=== PATIENT | male | born 2000 | race Caucasian/White ===

== ENCOUNTER 2023-10-02 13:04 | Emergency (ER) | payer BC, SELFPAY ==
[2023-10-02 13:09] VITALS: BP 146/79; PULSE 89; RESP 20; TEMP 36.7; O2SAT 98; BMI 35.4
--- NOTE | 2023-10-02 13:22 | ED.GENADUL1 ---
HPI - General Adult General Chief complaint: Nausea/Vomiting/Diarrhea Stated complaint: vomitting Time Seen by Provider: 10/02/23 13:09 Source: patient Mode of arrival: walk-in Limitations: no limitations History of Present Illness HPI narrative: patient is a 23-year-old male who presents to the emergency department for a three day history of headache, sore throat, swollen lymph nodes in the neck, vomiting, diarrhea. He has had no objective fevers. no medications taken prior to arrival. He states his sons were sick with runny noses last week but have gotten better. He states his mother told him there is a new Covid . He has no complaints of chest pain, shortness of breath. He has no difficulty speaking, swallowing or breathing. Related Data Previous Rx's Medication Instructions Recorded cefdinir 300 mg capsule 300 mg PO BID 10 days #20 caps 10/02/23 dexamethasone 4 mg tablet 4 mg PO BID 5 days #10 tabs 10/02/23 ondansetron 4 mg disintegrating 4 mg PO Q6H PRN nausea and 10/02/23 tablet vomiting #12 tabs Allergies Allergy/AdvReac Type Severity Reaction Status Date / Time Penicillins Allergy Severe Rash Verified 10/02/23 13:08 Review of Systems ROS Constitutional Reports: chills; Denies: fever Ears, nose, mouth, and throat Reports: throat pain and nasal congestion Cardiovascular Denies: chest pain Respiratory Reports: cough; Denies: shortness of breath Gastrointestinal Reports: nausea, vomiting and diarrhea Genitourinary Denies: painful urination Integumentary/Breast Denies: rash Neurological Reports: headache Hematologic/Lymphatic Denies: easy bruising Allergic/Immunologic Denies: hives Exam Narrative Exam Narrative: Gen.: Awake, alert, in no distress Head: Normocephalic, atraumatic ENT: Moist mucous membranes, pharyngeal erythema with airway widely open and patent, uvula midline. Tonsils are symmetric, no exudate noted. No trismus or drooling. Clear speech. Anterior cervical lymphadenopathy palpated, bilateral tympanic membranes clear Respiratory: No respiratory distress, lungs clear bilaterally Cardio: Regular rate and rhythm Gastrointestinal: Abdomen is soft, nondistended and nontender to palpation Extremities: Moves extremities equally Psych: Normal mood and affect Neuro: No focal neuro deficit Skin: Warm, dry, intact Constitutional Vital Signs, click to edit/add: Last Vital Signs Temp 98.1 F 10/02/23 13:09 Pulse 89 10/02/23 13:09 Resp 20 10/02/23 13:09 BP 146/79 H 10/02/23 13:09 Pulse Ox 98 10/02/23 13:09 O2 Del Method Room Air 10/02/23 13:09 Course Vital Signs Vital signs: Vital Signs Temperature 98.1 F 10/02/23 13:09 Pulse Rate 89 10/02/23 13:09 Respiratory Rate 20 10/02/23 13:09 Blood Pressure 146/79 H 10/02/23 13:09 Pulse Oximetry 98 10/02/23 13:09 Oxygen Delivery Method Room Air 10/02/23 13:09 Temperature 98.1 F 10/02/23 13:09 Pulse Rate 89 10/02/23 13:09 Respiratory Rate 20 10/02/23 13:09 Blood Pressure 146/79 H 10/02/23 13:09 Pulse Oximetry 98 10/02/23 13:09 Oxygen Delivery Method Room Air 10/02/23 13:09 Medical Decision Making MDM Narrative Medical decision making narrative: Covid test is negative, strep screen is positive. Patient treated in the Emergency Room with Zofran and Decadron. He is stable vital signs, no evidence of airway compromise or peritonsillar abscess at this time. Follow-up with PCP. He is ALLERGIC to penicillin so we will give Omnicef for home with BMX solution and Decadron. Follow-up with PCP and return to the Emergency Room if symptoms change or worsen. Medical Records Medical records reviewed: Yes I reviewed the patient's medical records Lab Data Lab results reviewed: Yes I reviewed the patient's lab results Labs: Lab Results 10/02/23 Range/Units 13:31 SARS-CoV-2 (PCR) Negative (NEGATIVE) Streptococcus Screen Positive A Discharge Plan Discharge Chief Complaint: Nausea/Vomiting/Diarrhea Clinical Impression: Acute streptococcal pharyngitis Patient Disposition: Home, Self-Care Time of Disposition Decision: 13:57 Condition: Good Prescriptions / Home Meds: New cefdinir 300 mg capsule 300 mg PO BID 10 Days Qty: 20 0RF dexamethasone 4 mg tablet 4 mg PO BID 5 Days Qty: 10 0RF ondansetron 4 mg tablet,disintegrating 4 mg PO Q6H PRN (Reason: nausea and vomiting) Qty: 12 0RF Instructions: Strep Throat (ED) Stand Alone Forms: Portal Instructions Referrals: Physician,Non-Staff, MD [Primary Care Provider] - 1 week
[2023-10-02] MEDS: DEXAMETHASONE SOD PHOS 10 MG/ML VIAL PO (13:28)
[2023-10-02] MEDS: ONDANSETRON 4 MG RAPDIS TABLET SL (13:28)
[2023-10-02 13:51] LABS: Internal Control Within Normal Limits; Strep A Antigen Screen Positive
[2023-10-02 13:53] LABS: SARS-CoV-2 Ag NEGATIVE (NEGATIVE)
[2023-10-02 14:04] VITALS: BP 135/70; PULSE 82; RESP 18; O2SAT 98
[2023-10-02 15:24] LABS: SARS-CoV-2 NAA NOT DETECTED (NOT DETECTE)
== END 2023-10-02 14:06 | disposition home or self-care (01) ==
PROVIDERS: Physician Assistant; Emergency Provider Emergency Medicine
DX: J02.0 Streptococcal pharyngitis (principal); Z20.822 Contact with and (suspected) exposure to COVID-19
CPT/HCPCS: 87635; 87811; 87880; 99283; J1100

== ENCOUNTER 2024-02-02 10:15 | Emergency (ER) | payer BC, SELFPAY ==
[2024-02-02 10:22] VITALS: BP 135/74; PULSE 104; RESP 15; TEMP 36.8; O2SAT 97; BMI 32.5
--- OUTSIDE RECORDS SUMMARY | 2024-02-02 10:27 | XMS_ITS | CCD ---
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 Role Phone Debbie Gaspar Primary Care Provider ISABELL LIU Admitting Unavailable ISABELL LIU Attending Unavailable DEBBIE DUBOIS Primary Care Unavailable ISABELL LIU Referring Unavailable ISABELL LIU Admitting Unavailable ISABELL LIU Attending Unavailable DEBBIE DUBOIS Primary Care Unavailable Allergies Allergy Classification Reported Allergen(s) Allergy Type Date of Onset Reaction(s) Facility (3 sources) Penicillins Propensity to adverse reactions to drug 04-29-2017 [facility] Medications Current Medications Medication Drug Class(es) Dates Sig (Normalized) Sig (Original) acetaminophen 500 mg oral tablet (1 source) Start: 01-18-2022 take 1 tablet by mouth four times daily as needed for pain acetaminophen (TYLENOL) 500 MG tablet Take 1 tablet by mouth 4 times daily as needed for Pain 30 tablet 1 01/18/2022 Active acetaminophen 325 mg / HYDROcodone bitartrate 5 mg oral tablet (1 source) Opioid Agonist Start: 2023 HYDROcodone-acetam inophen (NORCO) 5-325 MG per tablet 1 tablet acetaminophen 325 mg / oxyCODONE hydrochloride 5 mg oral tablet (1 source) Opioid Agonist Start: 2023 End: 02-18-2023 take 1 tablet by mouth every six hours as needed for pain, then take 4 tablets by mouth once daily as needed for pain oxyCODONE-acetamin ophen (PERCOCET) 5-325 MG per tablet Indications: Epidermal cyst Take 1 tablet by mouth every 6 hours as needed for Pain for up to 7 days. . Take lowest dose possible to manage pain Max Daily Amount: 4 tablets 28 tablet 0 2023 02/18/2023 Active cephalexin 500 mg oral capsule (1 source) Cephalosporin Antibacterial Start: 2023 cephALEXin (KEFLEX) 500 MG capsule 500 mgTake three times daily 21 capsule 0 2023 Active Start: 2023 cephALEXin (KE FLEX) 500 MG capsule 500 mgTake three times daily 21 capsule 0 2023 Active cetirizine hydrochloride 10 mg oral tablet (3 sources) Histamine-1 Receptor Antagonist Start: 12-11-2022 take 1 tablet by mouth once daily cetirizine (ZYRTEC) 10 MG tablet Indications: Seasonal allergic rhinitis, unspecified trigger TAKE 1 TABLET BY MOUTH EVERY DAY 90 tablet 3 12/11/2022 Active Start: 02-01-2022 End: 03-03-2022 take 1 tablet by mouth once daily cetirizine (ZYRTEC) 10 MG tablet Indications: Seasonal allergic rhinitis, unspecified trigger Take 1 tablet by mouth daily 30 tablet 0 02/01/2022 03/03/2022 Active 1 ml diphenhydrAMINE hydrochloride 50 mg/ml cartridge (1 source) Histamine-1 Receptor Antagonist Start: 2023 End: 02-12-2023 diphenhydrAMINE (BENADRYL) injection 12.5 mg escitalopram 20 mg oral tablet (1 source) Serotonin Reuptake Inhibitor Start: 10-19-2021 take 1 tablet by mouth once daily escitalopram (LEXAPRO) 20 MG tablet Indications: PTSD (post-traumatic stress disorder) , Depression, unspecified depression type , Anxiety TAKE 1 TABLET BY MOUTH EVERY DAY 90 tablet 3 10/19/2021 Active 1 ml fentaNYL 0.05 mg/ml injection (1 source) Opioid Agonist Start: 2023 fentaNYL (SUBLIMAZE) injection 25 mcg fluticasone propionate 0.05 mg/actuat metered dose nasal spray (3 sources) Corticosteroid Start: 12-11-2022 take 2 spray(s) nasal route once daily fluticasone (FLONASE) 50 MCG/ACT nasal spray Indications: Seasonal allergic rhinitis, unspecified trigger SPRAY 2 SPRAYS INTO EACH NOSTRIL EVERY DAY 3 each 3 12/11/2022 Active Start: 02-01-2022 take 2 spray(s) nasa l route once daily fluticasone (FLONASE) 50 MCG/ACT nasal spray Indications: Seasonal allergic rhinitis, unspecified trigger 2 sprays by Each Nostril route daily 16 g 0 02/01/2022 Active 1 ml HYDROmorphone hydrochloride 1 mg/ml cartridge (1 source) Opioid Agonist Start: 2023 HYDROmorphone (DILAUDID) injection 0.5 mg hydrOXYzine hydrochloride 25 mg oral tablet (1 source) Antihistamine Start: 11-22-2021 take 1 tablet by mouth once daily hydrOXYzine (ATARAX) 25 MG tablet Indications: Anxiety , PTSD (post-traumatic stress disorder) , Depression, unspecified depression type TAKE 1 TABLET BY MOUTH EVERY DAY AT NIGHT 90 tablet 0 11/22/2021 Active labetalol (NORMODYNE;TRANDATE ) injection 10 mg (1 source) Start: 2023 labetalol (NORMODYNE;TRANDATE) injection 10 mg 2 ml metoclopramide 5 mg/ml prefilled syringe (1 source) Dopamine-2 Receptor Antagonist Start: 2023 End: 02-12-2023 metoclopramide (REGLAN) injection 10 mg omeprazole 20 mg delayed release oral capsule (3 sources) Proton Pump Inhibitor Start: 12-11-2022 take 1 capsule by mouth once daily omeprazole (PRILOSEC) 20 MG delayed release capsule Indications: Gastroesophageal reflux disease without esophagitis , Nausea Take 1 capsule by mouth Daily 30 capsule 5 12/11/2022 Active Start: 10-03-2021 take 1 capsule by mo [facility] once daily before breakfast omeprazole (PRILOSEC) 20 MG delayed release capsule Indications: Gastroesophageal reflux disease without esophagitis , Nausea TAKE 1 CAPSULE BY MOUTH EVERY DAY IN THE MORNING BEFORE BREAKFAST 30 capsule 5 10/03/2021 Active ondansetron 4 mg oral tablet (4 sources) Serotonin-3 Receptor Antagonist Start: 2023 ondansetron (ZOFRAN) 4 MG tablet Take every six hours as needed 20 tablet 0 2023 Active Start: 2023 End: 2023 ondansetron (ZOFRAN) injecti on 4 mg Start: 09-10-2021 take 1 tablet by stephanie three times daily as needed for nausea ondansetron (ZOFRAN-ODT) 4 MG disintegrating tablet Indications: Gastroesophageal reflux disease without esophagitis , Nausea Take 1 tablet by mouth 3 times daily as needed for Nausea or Vomiting 21 tablet 0 09/10/2021 Active End: 2023 take 1 tablet by mouth every eight hours as needed for nausea ondansetron (ZOFRAN) 4 MG tablet Take 4 mg by mouth every 8 hours as needed for Nausea or Vomiting 0 2023 Discontinued (Stop Taking at Discharge) prazosin 1 mg oral capsule (1 source) alpha-Adrenergic Nick Start: 11-22-2021 take 1 capsule by mouth once daily prazosin (MINIPRESS) 1 MG capsule Indications: Anxiety , PTSD (post-traumatic stress disorder) , Depression, unspecified depression type TAKE 1 CAPSULE BY MOUTH EVERY DAY AT NIGHT 90 capsule 0 11/22/2021 Active 72 hr scopolamine 0.0139 mg/hr transdermal system (1 source) Anticholinergic Start: 2023 scopolamine (TRANSDERM-SCOP) transdermal patch 1 patch 5 ml sodium chloride 9 mg/ml injection (3 sources) Start: 2023 0.9 % sodium chloride infusion Start: 2023 sodium chlorid e flush 0.9 % injection 5-40 mL sulfamethoxazole 800 mg / trimethoprim 160 mg oral tablet (1 source) Dihydrofolate Reductase Inhibitor Antibacterial, Sulfonamide Antimicrobial take 1 tablet by mouth twice daily sulfamethoxazole-trimethoprim (BACTRIM DS;SEPTRA DS) 800-160 MG per tablet Take 1 tablet by mouth 2 times daily 0 Active Completed/Discontinued Medications Medication Drug Class(es) Dates Sig (Normalized) Sig (Original) calcium chloride 0.0014 meq/ml / potassium chloride 0.004 meq/ml / sodium chloride 0.103 meq/ml / sodium lactate 0.028 meq/ml injectable solution (1 source) Start: 2023 End: 2023 lactated ringers IV soln infusion 10 ml lidocaine hydrochloride 10 mg/ml injection (1 source) Antiarrhythmic, Amide Local Anesthetic Start: 2023 End: 2023 lidocaine PF 1 % injection 1 mL Problems Problem Classification Problem Date Documented Date Episodic/Chronic Anxiety disorders (6 sources) Posttraumatic stress disorder; Translations: [Post-traumatic stress disorder, unspecified] Onset: 07-17-2021 07-17-2021 Chronic Mood disorders (3 sources) Depressive disorder; Translations: [Depression] Onset: 07-17-2021 07-17-2021 Chronic Other skin disorders (3 sources) Finding of head and neck region; Translations: [Localized swelling, mass and lump, head] Onset: 02-10-2023 Episodic Other skin disorders (1 source) Epidermoid cyst of skin; Translations: [Epidermal cyst] Episodic Other skin disorders (1 source) Epidermal cyst; Translations: [Epidermal cyst] Onset: 2023 Episodic Other skin disorders (1 source) Localized swelling, mass and lump, head; Translations: [Localized swelling, mass and lump, head] Onset: 2023 Episodic Results Test Name Value Interpretation Reference Range [facility] Surgical Pathologyon 023 Surgical Pathology (NOTE) -- Diagnosis -- Skin, left lower head , excisional biopsy: Ruptured epidermal cyst with abscess formation. Lissa Damico. Electronically Signed Out 02/12/2023 Clinical Information Pre-Op Diagnosis: LOCALIZED SWELLING, MASS AND LUMP, HEAD Operative Findings: LEFT LOWER HEAD CYST Operation Performed: HEAD EXCISION LUMP [facility]CC[facility] mj Source of Specimen A: LEFT LOWER HEAD CYST Gross Description CHAVO CUMMINGS LEFT LOWER HEAD CYST 5.0 x 2.5 x 1.8 cm distorted ochoa skin ellipse. Sectioning reveals a 2.8 cm intact unilocular cyst that contains friable yellow material. Vision Specialist section 1cs, additional sections 2cs. tm Microscopic Description 3 NENA reviewed. Microscopic examination performed. SURGICAL PATHOLOGY CONSULTATION Patient Name: CHAVO CUMMINGS [facility] Rec: [id number] Path Number: [id number] [facility]akesAll [facility] ANATOMIC PATHOLOGY [address] [place] [id number] [facility] Comment on above: Performed By: #### P PPVS #### [employer] [address] [place] [id number] Tooling Engineering Tech: John Quinonez MD CBC with Auto Differentialon 02-10-2023 Absolute Eos # 0.[address] [facility] Absolute Lymph # 1.90 [facility] Absolute [place] # 0.90 [facility] Basophils (Bld) [#/Vol] 0.10 10*3/uL [facility] Basophils/100 WBC (Bld) 1 % 0 - 2 % [facility] Eosinophils/100 WBC (Bld) 5 % High 0 - 4 % [facility] Hematocrit (Bld) [Volume fraction] 43.1 % 41 - 53 % [facility] Hemoglobin (Bld) [Mass/Vol] 14.2 g/dL 13.5 - 17.5 g/dL [facility] Interpretation and review of laboratory results Abnormal [facility] Lymphocytes/100 WBC (Bld) 22 % Low 24 - 44 % [facility] MCH (RBC) [Entitic mass] 29.3 pg 26 - 34 pg [facility] MCHC (RBC) [Mass/Vol] 32.9 g/dL 31 - 37 g/dL [facility] MCV (RBC) [Entitic vol] 89.1 fL 80 - 100 fL [facility] Monocytes/100 WBC (Bld) 10 % High 1 - 7 % [facility] Platelet distribution width (Bld) [Ratio] 13.4 % 11.5 - 14.9 % [facility] Platelet mean volume (Bld) [Entitic vol] 8.9 fL 6.0 - 12.0 fL [facility] Platelets (Bld) [#/Vol] 306 10*3/uL [facility] RBC (Bld) [#/Vol] 4.84 10*6/uL 4.5 - 5.9 m/uL [facility] Segmented neutrophils/100 WBC (Bld) 62 % 36 - 66 % [facility] Segs Absolute 5.40 [facility] WBC (Bld) [#/Vol] 8.7 10*3/uL [facility] CBC with Diffon 02-10-2023 Abs. Basophil 0.10 k/uL Normal 0.0-0.2 [facility] Comment on above: Performed By: #### C DP #### [facility] [address] [place] [address] Tooling Engineering Tech: Jered Rogers DO Abs.Neutrophil (Seg) 5.40 k/uL Normal 1.3-9.1 [facility] Comment on above: Performed By: #### C DP #### [facility] [address] [place] [address] Tooling Engineering Tech: Jered Rogers DO Basophils/100 WBC (Bld) 1 % Normal 0-2 [facility] Comment on above: Performed By: #### C DP #### [facility] [place] [address] Tooling Engineering Tech: Jered Rogers DO Eosinophils (Bld) [#/Vol] 0.40 10*3/uL Normal 0.0-0.4 [facility] Comment on above: Performed By: #### C DP #### [facility] [address] [place] [address] Tooling Engineering Tech: Jered Rogers DO Eosinophils/100 WBC (Bld) 5 % High 0-4 [facility] Comment on above: Performed By: #### C DP #### [facility] [place] [address] Tooling Engineering Tech: Jered Rogers DO Erythrocyte distribution width (RBC) [Ratio] 13.4 % Normal 11.5-14.9 [facility] Comment on above: Performed By: #### C DP #### [facility] [place] [address] Tooling Engineering Tech: Jered Rogers DO Hematocrit (Bld) [Volume fraction] 43.1 % Normal 41-53 [facility] Comment on above: Performed By: #### C DP #### [facility] [place] [address] Tooling Engineering Tech: Jered Rogers DO Hemoglobin (Bld) [Mass/Vol] 14.2 g/dL Normal 13.5-17.5 [facility] Comment on above: Performed By: #### C DP #### [facility] [address] [place] [address] Tooling Engineering Tech: Jered Rogers DO Lymphocytes (Bld) [#/Vol] 1.90 10*3/uL Normal 1.0-4.8 [facility] Comment on above: Performed By: #### C DP #### [facility] [place] [address] Tooling Engineering Tech: Jered Rogers DO Lymphocytes/100 WBC (Bld) 22 % Low 24-44 [facility] Comment on above: Performed By: #### C DP #### [facility] [place] [address] Tooling Engineering Tech: Jered Rogers DO MCH (RBC) [Entitic mass] 29.3 pg Normal 26-34 [facility] Comment on above: Performed By: #### C DP #### [facility] [place] [address] Tooling Engineering Tech: Jered Rogers DO MCHC (RBC) [Mass/Vol] 32.9 g/dL Normal 31-37 [facility] Comment on above: Performed By: #### C DP #### [facility] [place] [address] Tooling Engineering Tech: Jered Rogers DO MCV (RBC) [Entitic vol] 89.1 fL Normal 80-100 [facility] Comment on above: Performed By: #### C DP #### [facility] [place] [address] Tooling Engineering Tech: Jered Rogers DO Monocytes (Bld) [#/Vol] 0.90 10*3/uL Normal 0.1-1.3 [facility] Comment on above: Performed By: #### C DP #### [facility] [address] [place] [address] Tooling Engineering Tech: Jered Rogers DO Monocytes/100 WBC (Bld) 10 % High 1-7 [facility] Comment on above: Performed By: #### C DP #### [facility] [address] [place] [address] Tooling Engineering Tech: Jered Rogers DO Neutrophil (Seg) 62 % Normal 36-66 [facility] Comment on above: Performed By: #### C DP #### [facility] [place] [address] Tooling Engineering Tech: Jered Rogers DO Platelet mean volume (Bld) [Entitic vol] 8.9 fL Normal 6.0-12.0 [facility] Comment on above: Performed By: #### C DP #### [facility] [place] [address] Tooling Engineering Tech: Jered Rogers DO Platelets (Bld) [#/Vol] 306 10*3/uL Normal 150-450 [facility] Comment on above: Performed By: #### C DP #### [facility] [place] [address] Tooling Engineering Tech: Jered Rogers DO RBC (Bld) [#/Vol] 4.84 10*6/uL Normal 4.5-5.9 [facility] Comment on above: Performed By: #### C DP #### [facility] [place] [address] Tooling Engineering Tech: Jered Rogers DO WBC (Bld) [#/Vol] 8.7 10*3/uL Normal 3.5-11.0 [facility] Comment on above: Performed By: #### C DP #### [facility] [address] [place] [address] Tooling Engineering Tech: Jered Rogers DO Vital Signs Date Time Vital Sign Value Performing Clinician Faci lity 2023 10:19-0400 Body temperature 97.3 [degF] Isabell Liu MD Work Phone: [facility] 2023 10:19-0400 Diastolic blood pressure 46 mm[Hg] Isabell Liu MD Work Phone: [facility] 2023 10:19-0400 Heart rate 79 /min Isabell Liu MD Work Phone: [facility] 2023 10:19-0400 Respiratory rate 16 /min Isabell Liu MD Work Phone: [facility] 2023 10:19-0400 SaO2% (BldA) [Mass fraction] 100 % Isabell Liu MD Work Phone: [facility] 2023 10:19-0400 Systolic blood pressure 124 mm[Hg] [facility] [employer] 2023 06:49-0400 Body height 175.3 cm [facility]abell Liu MD [facility] 2023 06:49-0400 Body mass index (BMI) [Ratio] 35.44 kg/m2 Isabell Liu MD [facility] [employer] 2023 06:49-0400 Body weight 108.86 kg Isabell Liu MD [facility] [employer] 02-10-2023 07:29-0400 Body height 175.3 cm Isabell Liu MD Work Phone: [facility] [employer] 02-10-2023 07:29-0400 Body mass index (BMI) [Ratio] 35.44 kg/m2 Isabell Liu MD Work Phone: [facility] [employer] 02-10-2023 07:29-0400 Body temperature 98.2 [degF] [facility]abell Liu MD [facility] [employer] 02-10-2023 07:29-0400 Body weight 108.86 kg Isabell Liu MD Work Phone: [facility] [employer] [facility] 02-10-2023 07:29-0400 Diastolic blood pressure 80 mm[Hg] Isabell Liu MD Work Phone: [facility] [employer] 02-10-2023 07:29-0400 Heart rate 90 /min Isabell Liu MD [facility] 02-10-2023 07:29-0400 Respiratory rate 18 /min Isabell Liu MD [facility] 02-10-2023 07:29-0400 SaO2% (BldA) [Mass fraction] 99 % Isabell Liu MD Work Phone: [facility] [employer] [facility] 02-10-2023 07:29-0400 Systolic blood pressure 132 mm[Hg] Isabell Liu MD Work Phone: [facility] Encounters Encounter Date Encounter Type Care Provider Facility Start: 2023 End: 2023 ambulatory ISABELL Liang [facility] Start: 2023 End: 2023 Subsequent hospital visit by physician Isabell Liu MD Work Phone: [facility] Comment on above: Epidermal cyst (Prim thee Dx); Localized swelling, mass and lump, head Start: 02-10-2023 End: 02-15-2023 ambulatory ISABELL Garth [facility] Start: 02-10-2023 End: 03-17-2023 Subsequent hospital visit by physician Isabell Lui MD Work Phone: [facility] Pre-Admit Testing Start: 02-18-2022 End: 02-18-2022 Subsequent hospital visit by physician [facility] Comment on above: Canceled (Patient) Procedures Date Procedure Procedure Detail Performing Clinician Start: 02-10-2023 Blood count complete auto&auto difrntl wbc Isabell Liu MD Work Phone: Plan of Treatment Date Care Activity Detail Author Start: 12-11-2023 Depression Monitoring Depression [facility] Start: 2023 End: 2023 Exc b9 lesion mrgn xcp sk tg s/n/h/f/g 0.5 cm/< HEAD LESION EXCISION Localized swelling, mass and lump, head 2023 8:36 AM EDT [facility] Start: 07-17-2022 Depression Monitoring Depression [facility] Start: 07-01-2022 Influenza vaccination Flu vaccine (# 1) [facility] Start: 08-01-2021 Influenza vaccination Flu vaccine (# 1) [facility] Start: 2017 DTaP/Tdap/Td vaccine (1 - Tdap) DTaP/Tdap/Td vaccine (1 - Tdap) [facility] Start: 02-12-2016 Hepatitis C screening Hepatitis C sc reen [facility] Start: 2013 HIV screening HIV screen [facility] Start: 2009 HPV vaccine (1 - Mal e 2-dose series) HPV vaccine (1 - Male 2-dose series) [facility] Start: 02-12-2004 Pneumococcal 0-64 ye ars Vaccine (1 of 2 - PPSV23) Pneumococcal 0-64 years Vaccine (1 of 2 - PPSV23) [facility] Start: 2003 COVID-19 Vaccine (1) COVID-19 Vaccin e (1) [facility] Start: 1999 Varicella vaccine (1 of 2 - 2-dose childhood series) Varicella vaccine (1 of 2 - 2-dose childhood series) [facility] Start: 1998 COVID-19 Vaccine (#1) COVID-19 Vacci ne (#1) [facility] Start: 1998 Hepatitis C screening Hepatitis C [facility] [employer] End: 2023 INITIATE PACU OXYGEN THERAPY PROTOCOL Initiate PACU Oxygen Therapy Protocol Respiratory Care Routine Continuous until discontinued starting 2023 [employer] Phone: Comment on above: Continuous until dis continued starting 2023 Surgical Pathology Surgical Path ology Lab Routine Localized swelling, mass and lump, head Release Upon Ordering for 1 Occurrences starting 2023 [employer] Phone: Comment on above: Release Upon Orderin g for 1 Occurrences starting 2023 End: 2023 SURGICAL PATHOLOGY REPORT SURGICAL PATHOLOGY REPORT Lab Routine Once for 1 Occurrences starting 2023 until 2023 [employer] Phone: Comment on above: Once for 1 Occurrenc es starting 2023 until 2023 Payers Date Payer Category Payer Unknown [id number] 2021 Unknown [id number] 1998 Unknown [id number] 1998 Unknown [id number] Social History Date Type Detail Facility Start: 06-16-2021 Tobacco smoking stat [facility] Smokes tobacco daily [employer] Phone: Start: 06-16-2021 End: 2022 History of tobacco use Cigarette Smoker [employer] Phone: Start: 07-17-2021 End: 02-10-2023 Cigarettes smoked current (pack per day) - Reported 0.5 [employer] Phone: Start: 07-17-2021 End: 02-10-2023 Tobacco use and exposure Smokeless tobacco non-user [employer] Phone: Start: 01-18-2022 Alcohol intake Ex-drinker (finding) [employer] Phone: Start: 07-17-2021 End: 01-21-2023 History SDOH Financial 5 [employer] Phone: Start: 07-17-2021 End: 01-21-2023 History SDOH Food Worry 1 [employer] Phone: Start: 2000 Sex Assigned At Not on file [employer] Phone: Start: 02-10-2023 Tobacco smoking stat [facility] Ex-smoker [employer] Phone: Start: 06-16-2021 End: 2022 History of tobacco use Current smoker [employer] Phone: Start: 2023 Alcohol intake Current drinke r of alcohol (finding) [employer] Phone: Start: 01-21-2023 History SDOH Transpo rt Non-Med 2 [employer] Phone: Start: 02-10-2023 Alcohol Comment social/weekends [employer] Phone: Start: 01-31-2023 End: 02-10-2023 Exposure to SARS-CoV-2 (event) Not sure [employer] Phone: Hospital Discharge instructions 2023 Discharge Instructions Note Date & Type Note Facility 2023 Hospital Discharg e instructions Genesis James RN - 2023 9:[address] Liu Post-Op Orders for Outpatient 1.) Diet: [x] As tolerated [] Special 2.) Activity: [] No lifting more than five to ten pounds weeks [x] May Shower tomorrow [x] No driving until off pain medications 3.) Dressing: [x] Remove top dressing in 48 hours [x] Leave steri strips on [x] Remove and change dressing sooner if soaked 4.) Medication: [x] Take medication as prescribed [] Resume blood thinners in days [x] Resume home medications per AVS Summary 5.) Office visit: Follow up with Dr. Liu. Call to schedule an appointment if one has not been made. 6.) Call [phone] if you have any questions or concerns. [facility] INSTRUCTIONS FOR GENERAL ANESTHESIA In order to continue your care at home, please follow the instructions below. Anesthesia - Do not drink any alcoholic beverages or make any legal or important decisions for 24 hours. If your surgery was on an extremity or abdomen, do not drive or operate any machinery until your surgeon approves, otherwise do not drive or operate any machinery for 24 hours or as restricted by your surgeon. Pain Medications - Please do not drive, operate machinery, or drink alcoholic beverages while taking any prescribed pain medication. Diet - Start out eating lightly (broth, soup, crackers, toast, etc.) advancing as tolerated to your usual diet. Try to avoid spicy and greasy/fatty foods for 24 hours. Drink plenty of fluids after surgery, unless you are on a fluid restriction. Avoid milk/milk product for several hours. Call your surgeon for the following: You have pain that does not get better after you take pain medicine. For an oral temperature (by mouth) is 101 degrees or higher, chills, or excessive sweating. You have increasing and progressive bleeding or drainage from surgery site. Signs of an infection: increased swelling, redness, warmth, or hardness around surgery area or yellow or green drainage. Persistent nausea or vomiting and can t keep fluids down. If you are unable to urinate within 8 hours of surgery. Redness or swelling at IV site. For any questions or concerns you may have. Remove Scopalamine patch fro behind Left ear on 02/13/23 documented in this encounter [facility] [employer] Work Phone: Hospital Discharge instructions 02-10-2023 Discharge Instructions Note Date & Type Note Facility 02-10-2023 Hospital Discharg e instructions Carrie Corona RN - 02/10/2023 6:51 AM EDT Pre-op Instructions For Out-Patient Surgery Medication Instructions: Please stop herbs and any supplements now (includes vitamins and minerals). Please contact your surgeon and prescribing physician for pre-op instructions for any blood thinners. If you have inhalers/aerosol treatments at home, please use them the morning of your surgery and bring the inhalers with you to the hospital. Please take the following medications the morning of your surgery with a sip of water: Omeprazole Surgery Instructions: After midnight before surgery: Do not eat or drink anything, including water, mints, gum, and hard candy. You may brush your teeth without swallowing. No smoking, chewing tobacco, or street drugs. Please shower or bathe before surgery. If you were given Surgical Scrub Chlorhexidine Gluconate Liquid (CHG), please shower the night before and the morning of your surgery following the detailed instructions you received during your pre-admission visit. Please do not wear any cologne, lotion, powder, deodorant, jewelry, piercings, perfume, makeup, nail malaysian, hair accessories, or hair spray on the day of surgery. Wear loose comfortable clothing. Leave your valuables at home. Bring a storage case for any glasses/contacts. An adult who is responsible for you MUST drive you home and should be with you for the first 24 hours after surgery. If having out-patient knee and foot surgeries, please arrange for planned crutches, walker, or wheelchair before arriving to the hospital. The Day of Surgery: Arrive at [facility] Surgery Entrance at the time directed by your surgeon and check in at the desk. If you have a living will or healthcare power of ship rigger,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
[2024-02-02 10:45] LABS: Internal Control Within Normal Limits; Strep A Antigen Screen Positive
--- NOTE | 2024-02-02 10:57 | ED_ITS ---
HPI - General Adult General Stated complaint: SORE THROAT/PUKING Time Seen by Provider: 02/02/24 10:56 Source: patient Mode of arrival: walk-in Limitations: no limitations History of Present Illness HPI narrative: This patient is here for evaluation of a sore throat. He said several family members had symptoms couple weeks ago but no other contact that he is aware of. He has aches and pains and chills and a very sore throat. He still has his tonsils. He is not on any antibiotics at this time. He says his breath smells like animals Related Data Allergies Allergy/AdvReac Type Severity Reaction Status Date / Time Penicillins Allergy Severe Rash Verified 10/02/23 13:08 [facility] Social History Smoking status: Current every day smoker Exam Narrative Exam Narrative: Patient is awake alert is not a toxic in appearance. His rapid strep was done after triage by nursing. The strep test is positive His airway is widely intact he has no stridor no drooling no posturing. On examination oral cavity does have exudate and erythema. The uvula is not swollen. The lips of the tongue and the floor the mouth are normal. He does not display any respiratory distress wheezing or coughing. Constitutional Vital Signs, click to edit/add: Last Vital Signs Temp 98.2 F 02/02/24 10:22 Pulse 104 H 02/02/24 10:22 Resp 15 02/02/24 10:22 BP 135/74 02/02/24 10:22 Pulse Ox 97 02/02/24 10:22 O2 Del Method Room Air 02/02/24 10:22 Course Vital Signs Vital signs: Vital Signs Temperature 98.2 F 02/02/24 10:22 Pulse Rate 104 H 02/02/24 10:22 Respiratory Rate 15 02/02/24 10:22 Blood Pressure 135/74 02/02/24 10:22 Pulse Oximetry 97 02/02/24 10:22 Oxygen Delivery Method Room Air 02/02/24 10:22 Temperature 98.2 F 02/02/24 10:22 Pulse Rate 104 H 02/02/24 10:22 Respiratory Rate 15 02/02/24 10:22 Blood Pressure 135/74 02/02/24 10:22 Pulse Oximetry 97 02/02/24 10:22 Oxygen Delivery Method Room Air 02/02/24 10:22 Medical Decision Making Lab Data Labs: Lab Results 02/02/24 Range/Units 10:22 Streptococcus Screen Positive A Discharge Plan Discharge Chief Complaint: Upper Respiratory Infection Patient Disposition: Home, Self-Care Time of Disposition Decision: 11:24 Condition: Good Discharge Date/Time: 02/02/24 11:21
== END 2024-02-02 11:21 | disposition home or self-care (01) ==
LOC: ER 10:26
PROVIDERS: Emergency Provider Emergency Medicine Emergency Medical Services
DX: J02.0 Streptococcal pharyngitis (principal); F17.210 Nicotine dependence, cigarettes, uncomplicated
CPT/HCPCS: 87880; 99283

== ENCOUNTER 2024-05-02 19:44 | Emergency (ER) | payer SELFPAY ==
[2024-05-02 19:51] VITALS: BP 161/79; PULSE 96; TEMP 37.1; O2SAT 99; BMI 32.6
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
[2024-05-02 20:25] LABS: Internal Control Within Normal Limits; Strep A Antigen Screen Negative
--- NOTE | 2024-05-02 20:25 | ED.GENADUL1 ---
HPI HPI - General Adult General Chief complaint: Upper Respiratory Infection Stated complaint: SORE THROAT Time Seen by Provider: 05/02/24 20:08 Source: patient Mode of arrival: walk-in History of Present Illness HPI narrative: 24-year-old male presents for sore throat of 2 days duration. It hurts more when he swallows. No known ill contacts. No fever or cough. The pain is moderate. Related Data Allergies Allergy/AdvReac Type Severity Reaction Status Date / Time Penicillins Allergy Severe Rash Verified 10/02/23 13:08 Opioid HPI Opioid Management Most Recent Opioid Data: No Data to Display Review of Systems ROS Narrative A ten point review of systems is negative except as noted above. PFSH PFSH Social History Smoking status: Current every day smoker Exam Narrative Exam Narrative: Nurses note and vital signs reviewed and patient is not hypoxic. General: The patient appears well and in no apparent distress. Patient is resting comfortably on cart. Skin: Warm, dry, no pallor noted. There is no rash noted. Head: Normocephalic, atraumatic Eye: Normal conjunctiva, no drainage Ears, Nose, Mouth, and Throat: oral mucosa is moist. Nares patent. He has pharyngeal erythema. No peritonsillar swelling or uvular deviation. Uvula is mildly swollen. He is handling his oral secretions well. Cardiovascular: Regular Rate and Rhythm Respiratory: Patient is in no distress, no accessory muscle use, lungs are clear to auscultation, no wheezing, rales or rhonchi Back: non-tender GI: Soft and nontender Musculoskeletal: No joint swelling Neurological: A&O, normal speech Psychiatric: Cooperative Constitutional Vital Signs, click to edit/add: Last Vital Signs Temp 98.8 F 05/02/24 19:51 Pulse 96 H 05/02/24 19:51 Resp 18 05/02/24 19:51 BP 161/79 H 05/02/24 19:51 Pulse Ox 99 05/02/24 19:51 O2 Del Method Room Air 05/02/24 19:51 Course Vital Signs Vital signs: Vital Signs Temperature 98.8 F 05/02/24 19:51 Pulse Rate 96 H 05/02/24 19:51 Respiratory Rate 18 05/02/24 19:51 Blood Pressure 161/79 H 05/02/24 19:51 Pulse Oximetry 99 05/02/24 19:51 Oxygen Delivery Method Room Air 05/02/24 19:51 Temperature 98.8 F 05/02/24 19:51 Pulse Rate 96 H 05/02/24 19:51 Respiratory Rate 18 05/02/24 19:51 Blood Pressure 161/79 H 05/02/24 19:51 Pulse Oximetry 99 05/02/24 19:51 Oxygen Delivery Method Room Air 05/02/24 19:51 Medical Decision Making MDM Narrative Medical decision making narrative: Strep test is negative. He was given IM Decadron. At this point there is no indication for an antibiotic and he likely has viral pharyngitis. Treatment diagnosis and follow-up were discussed with the patient. Differential Diagnosis Differential Diagnosis: Viral pharyngitis, strep throat Lab Data Lab results reviewed: Yes I reviewed the patient's lab results Labs: Lab Results 05/02/24 Range/Units 19:56 Streptococcus Screen Negative Discharge Plan Discharge Stand Alone Forms: Portal Instructions Chief Complaint: Upper Respiratory Infection Clinical Impression: Viral pharyngitis Patient Disposition: Home, Self-Care Time of Disposition Decision: 20:31 Condition: Good Mode of Transportation: Private Vehicle Print Language: Icelandic Instructions: Pharyngitis (ED) Referrals: Physician,Non-Staff, MD [Primary Care Provider] - 1 week
[2024-05-02] MEDS: DEXAMETHASONE SOD PHOS 10 MG/ML VIAL IM (20:38)
[2024-05-02 20:44] VITALS: BP 136/89; PULSE 73; O2SAT 98
== END 2024-05-02 20:44 | disposition home or self-care (01) ==
PROVIDERS: Emergency Provider Emergency Medicine
DX: J02.9 Acute pharyngitis, unspecified (principal)
CPT/HCPCS: 87070; 87880; 96372; 99284; J1100

== ENCOUNTER 2024-07-15 10:09 | Emergency (ER) | payer SELFPAY ==
[2024-07-15 10:13] VITALS: BP 130/72; PULSE 88; TEMP 36.6; O2SAT 99; BMI 32.6
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
--- NOTE | 2024-07-15 10:35 | ED_ITS ---
HPI HPI - General Adult General Chief complaint: Skin/Abscess/Foreign Body Stated complaint: LUMP ON CHEST, REDNESS Time Seen by Provider: 07/15/24 10:16 Source: patient Mode of arrival: walk-in History of Present Illness HPI narrative: The patient is coming to the ER with a sternal swelling that he noted over the last 5 to 6 days, there was no itching there was no lesion there but he mentioned over the last 3 years almost he had at least 3 times as a problem in the same spot Initially the first time he had a drainage of that area and then the second time he did not do anything for it Today after 5 to 6 days the patient noted that there is a swelling in the area and that why he is coming for evaluation, there was no trauma and there was only pain whenever he is using his arm No fever no chills no nausea no vomiting Related Data Previous Rx's ?Medication ?Instructions ?Recorded ibuprofen 600 mg tablet 600 mg PO TID PRN pain #20 tabs 07/15/24 sulfamethoxazole 800 1 tab PO Q12H #14 tabs 07/15/24 mg-trimethoprim 160 mg tablet (Bactrim DS) Allergies Allergy/AdvReac Type Severity Reaction Status Date / Time Penicillins Allergy Severe Rash Verified 10/02/23 13:08 Opioid HPI Opioid Management Most Recent Opioid Data: No Data to Display Review of Systems ROS Status of ROS 10 or more systems reviewed and unremark able except as noted in history and below PFSH PFS Social History Smoking status: Current every day smoker Exam Narrative Exam Narrative: Nurses notes and vital signs reviewed and patient is not hypoxic. Chest wall: At the mid of the sternal area the patient have a an area of almost 2 x 1 cm redness no fluctuation There is no opening of any drainage but it is covered with hair General: Well-appearing and in no apparent distress. Skin: Warm, dry, no pallor noted. No rash. Head: Normocephalic, atraumatic. Neck: Supple, non-tender. Eye: Pupils are equal, round and EOMI. No scleral icterus. Ears, Nose, Mouth, and Throat: TM are clear, no nasal mucosal hypertrophy. Oral mucosa is moist, no posterior oropharynx erythema, uvula is mid-line Cardiovascular: Regular Rate and Rhythm without murmur, gallop or rub. Respiratory: No accessory muscle use or respiratory distress. Lungs are clear to auscultation, no wheezing, rales or rhonchi Back: No midline thoracic or lumbar vertebral tenderness. No CVA tenderness Musculoskeletal: normal ROM, no calf or popliteal tenderness, no lower extre mity edema/swelling GI: Abdomen is soft, non-distended. Normal bowel sounds. No masses appreciated. No tenderness to palpation. No rebound, guarding, or rigidity noted. Neurological: A&O x4. No cranial nerve dysfunction observed. No truncal ataxia. Moves all extremities. Sensation intact. Psychiatric: Cooperative and interactive. Normal mood and affect. Constitutional Vital Signs, click to edit/add: Last Vital Signs Temp 97.9 F 07/15/24 10:13 Pulse 88 07/15/24 10:13 Resp 16 07/15/24 10:13 BP 130/72 07/15/24 10:13 Pulse Ox 99 07/15/24 10:13 O2 Del Method Room Air 07/15/24 10:13 Course Vital Signs Vital signs: Vital Signs Temperature 97.9 F 07/15/24 10:13 Pulse Rate 88 07/15/24 10:13 Respiratory Rate 16 07/15/24 10:13 Blood Pressure 130/72 07/15/24 10:13 Pulse Oximetry 99 07/15/24 10:13 Oxygen Delivery Method Room Air 07/15/24 10:13 Temperature 97.9 F 07/15/24 10:13 Pulse Rate 88 07/15/24 10:13 Respiratory Rate 16 07/15/24 10:13 Blood Pressure 130/72 07/15/24 10:13 Pulse Oximetry 99 07/15/24 10:13 Oxygen Delivery Method Room Air 07/15/24 10:13 Medical Decision Making [facility] Narrative Medical decision making narrative: Right now the patient presentation shows possible cellulitis although there is no fluctuation but this could be an ongoing process of an abscess forming I did explain to the patient that for the fact that he is having multiple lesion in the same area that could be further workup to follow-up with his primary care and he was referred to her primary care The patient was started on Bactrim as he had allergy to penicillin He also covered with ibuprofen for pain Patient instructed about monitoring his symptoms in case of increasing pain fever or any progression he is to come back to the ER The patient is to follow up with primary care physician in next 2-3 days or to return to the emergency department should any of the signs or symptoms worsen or new symptoms develop. The patient agrees with the following Diagnosis and T reatment plan and the patient will be discharged home. Discharge Plan Discharge Stand Alone Forms: Portal Instructions Chief Complaint: Skin/Abscess/Foreign Body Clinical Impression: Cellulitis Qualifiers: Site of cellulitis: unspecified site Qualified Code(s): L03.90 - Cellulitis, unspecified Patient Disposition: Home, Self-Care Time of Disposition Decision: 10:24 Condition: Good Prescriptions / Home Meds: New sulfamethoxazole-trimethoprim [Bactrim DS] 800-160 mg tablet 1 tab PO Q12H Qty: 14 0RF ibuprofen 600 mg tablet 600 mg PO TID PRN (Reason: pain) Qty: 20 0RF Print Language: Spanish Instructions: Cellulitis (ED) Referrals: Physician,Non-Staff, MD [Primary Care Provider] - 1 week
== END 2024-07-15 10:38 | disposition home or self-care (01) ==
PROVIDERS: Emergency Provider Emergency Medicine
DX: L03.90 Cellulitis, unspecified (principal); F17.200 Nicotine dependence, unspecified, uncomplicated
CPT/HCPCS: 99283

== ENCOUNTER 2024-10-17 16:18 | Emergency (ER) | payer SELFPAY ==
[2024-10-17 16:31] VITALS: BP 136/77; PULSE 98; TEMP 37.2; O2SAT 95; BMI 30.9
[2024-10-17 16:41] VITALS: O2SAT 99
--- NOTE | 2024-10-17 16:44 | ED.URI1 ---
HPI - URI/Sore Throat General Chief Complaint: Upper Respiratory Infection Time Seen by Provider: 10/17/24 16:32 Source: patient History of Present Illness HPI Narrative: 24-year-old male presents to the ER with concerns of cough congestion and sore throat. Subjective fever. Patient states he did not feel well on Friday, woke up with worsening sore throat and bodyaches. Patient has since developed cough, mild back pain. He denies any vomiting or diarrhea at this time but did vomit earlier. His younger kids have been sick with URI symptoms. He does not get vaccinated for flu, and did not going to work today with his symptoms persisting. Patient appears in no distress at bedside MD elicited complaint: Reports fever, cough, sore throat and nasal congestion Onset (ago): day(s) (4) Consistency: Reports constant Able to tolerate fluids by mouth: Yes Context: Reports sick contacts Related Data Home Medications ?Medication ?Instructions ?Recorded ?Confirmed No Known Home Medications 10/17/24 10/17/24 Allergies Allergy/AdvReac Type Severity Reaction Status Date / Time Penicillins Allergy Severe Rash Verified 10/02/23 13:08 Review of Systems ROS Constitutional Reports: fever; Denies: chills Ears, nose, mouth, and throat Reports: throat pain and nasal congestion Cardiovascular Denies: chest pain Respiratory Reports: cough; Denies: shortness of breath Gastrointestinal Reports: nausea and vomiting (none today); Denies: abdominal pain or coffee grounds in vomit Genitourinary Denies: painful urination Musculoskeletal Denies: neck pain Integumentary/Breast Denies: rash Neurological Denies: headache PFSH PFSH Social History Smoking status: Current every day smoker Exam Narrative Exam Narrative: Nurses notes and vital signs reviewed and patient is not hypoxic. General: The patient appears well and in no apparent distress. Patient is resting comfortably on cart. Skin: Warm, dry, no pallor noted. Head: Normocephalic, atraumatic Neck: Supple, trachea mid-line, no tenderness, no lymphadenopathy Eye: Pupils are equal, round and reactive to light, EOMI Ears, Nose, Mouth, and Throat: TM are clear, normal light reflex, oral mucosa is moist, positive posterior oropharynx erythema no tonsillary hypertrophy or exudate, uvula is mid-line Cardiovascular: Regular Rate and Rhythm Respiratory: Patient is in no distress, no accessory muscle use, lungs are clear to auscultation, no wheezing, rales or rhonchi. Chest Wall: no tenderness Back: non-tender, no CVA tenderness Musculoskeletal: normal ROM, no tenderness, no swelling GI: Normal bowel sounds, no tenderness to palpation, no masses appreciated. No rebound, guarding, or rigidity noted. Neurological: A&O x4 Psychiatric: Cooperative Constitutional Vital Signs, click to edit/add: Last Vital Signs Temp 99.0 F 10/17/24 16:31 Pulse 98 H 10/17/24 16:31 Resp 18 10/17/24 16:31 BP 136/77 10/17/24 16:31 Pulse Ox 99 10/17/24 16:41 O2 Del Method Room Air 10/17/24 16:41 Course Vital Signs Vital signs: Vital Signs Temperature 99.0 F 10/17/24 16:31 Pulse Rate 98 H 10/17/24 16:31 Respiratory Rate 18 10/17/24 16:31 Blood Pressure 136/77 10/17/24 16:31 Pulse Oximetry 95 10/17/24 16:31 Oxygen Delivery Method Room Air 10/17/24 16:31 Temperature 99.0 F 10/17/24 16:31 Pulse Rate 98 H 10/17/24 16:31 Respiratory Rate 18 10/17/24 16:31 Blood Pressure 136/77 10/17/24 16:31 Pulse Oximetry 99 10/17/24 16:41 Oxygen Delivery Method Room Air 10/17/24 16:41 MDM - URI/Sore Throat MDM Narrative Medical decision making narrative: Patient not hypoxic, medicated with Tylenol. Respiratory swabs obtained with patient's concern of when to return to work. swabs are negative. We discussed throat culture pending. Likely viral pharyngitis patient agreeable to hold on antibiotics unless indicated by positive culture. He is interested in a oral steroid as he has gotten some relief in symptoms with this before but notes that he should also be alternating Tylenol and Motrin. Continue with p.o. fluid The patient is to followup with primary care physician in next 2-3 days or to return to the emergency department should any of the signs or symptoms worsen or new symptoms develop. Patient had questions answered. The patient agrees with the following Diagnosis and Treatment plan and the patient will be discharged home. Lab Data Attestation: I reviewed the patient's lab results. Labs: Lab Results 10/17/24 Range/Units 16:38 Influenza Type A Ag Negative Influenza Type B Ag Negative SARS-CoV-2 Ag (CV2AG) Negative (NEGATIVE) Streptococcus Screen Negative Discharge Plan Discharge Chief Complaint: Upper Respiratory Infection Clinical Impression: Viral pharyngitis, Upper respiratory infection Patient Disposition: Home, Self-Care Time of Disposition Decision: 17:20 Condition: Good Prescriptions / Home Meds: No Action No Known Home Medications Print Language: Senegalese Instructions: Upper Respiratory Infection (ED) Additional Instructions: Throat culture pending Referrals: Physician,Non-Staff, MD [Primary Care Provider] - 1 week Jacquie Boston NP [Physician] - 1 week
[2024-10-17] MEDS: ACETAMINOPHEN 500 MG TABLET 1000 MG PO (16:48)
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
[2024-10-17 17:04] LABS: Influenza Virus A Antigen Negative; Influenza Virus B Antigen Negative; Internal Control Within Normal Limits; SARS-CoV-2 Ag NEGATIVE (NEGATIVE); Strep A Antigen Screen Negative
[2024-10-17] MEDS: DEXAMETHASONE SOD PHOS 10 MG/ML VIAL PO (17:27)
== END 2024-10-17 17:31 | disposition home or self-care (01) ==
PROVIDERS: Emergency Provider Emergency Medicine
DX: J02.9 Acute pharyngitis, unspecified (principal); J06.9 Acute upper respiratory infection, unspecified; F17.200 Nicotine dependence, unspecified, uncomplicated; Z20.822 Contact with and (suspected) exposure to COVID-19
CPT/HCPCS: 87070; 87804; 87811; 87880; 99285; J1100

== ENCOUNTER 2024-11-17 08:18 | Emergency (ER) | payer SELFPAY ==
[2024-11-17 08:22] VITALS: BP 139/87; PULSE 90; TEMP 36.7; O2SAT 99; BMI 31.0
--- NOTE | 2024-11-17 08:32 | ED_ITS ---
HPI HPI - General Adult General Chief complaint: Upper Respiratory Infection Stated complaint: STREP THROAT Time Seen by Provider: 11/17/24 08:25 Source: patient Mode of arrival: walk-in Limitations: no limitations History of Present Illness HPI narrative: Patient states he has a sore throat. He said he was exposed to strep and his son is being treated for it right now. He said his throat started getting sore the past couple of days and red and swollen. No difficulty swallowing no stridor. No fever here. He tested positive for strep about a month ago and was treated at that time 2. He said it feels similar. No cough no chest congestion. Patient is not in any acute distress. Appears hydrated. Related Data Previous Rx's ?Medication ?Instructions ?Recorded azithromycin 250 mg tablet See Rx Instructions PO .COMPLEX #6 10/22/24 (Zithromax Z-Esequiel) tabs azithromycin 500 mg tablet See Rx Instructions PO .COMPLEX #3 11/17/24 (Zithromax TRI-ESEQUIEL) tabs Allergies Allergy/AdvReac Type Severity Reaction Status Date / Time Penicillins Allergy Severe Rash Verified 11/17/24 08:27 Opioid HPI Opioid Management Most Recent Opioid Data: Last Pain Scale 7 10/17/24 16:48 10/17/24 Review of Systems ROS Status of ROS 10 or more systems reviewed and unremark able except as noted in history and below PFSH [facility] Social History Smoking status: Current every day smoker Little interest or pleasure in doing things: not at all Feeling down, depressed, or hopeless: not at all Exam Narrative Exam Narrative: General: alert, no acute distress Cardiovascular: regular rate and rhythm, normal peripheral perfusion. Respiratory: Lungs CTA, respirations non labored. Extremities: no deformity, no trauma. Neurological: oriented x 4, LOC appropriate for age. Throat is erythematous and mildly swollen. No uvular shift. No trismus no drooling no stridor. Constitutional Vital Signs, click to edit/add: Last Vital Signs Temp 98.1 F 11/17/24 08:22 Pulse 90 11/17/24 08:22 Resp 18 11/17/24 08:22 BP 139/87 11/17/24 08:22 Pulse Ox 99 11/17/24 08:22 O2 Del Method Room Air 11/17/24 08:22 Course Vital Signs Vital signs: Vital Signs Temperature 98.1 F 11/17/24 08:22 Pulse Rate 90 11/17/24 08:22 Respiratory Rate 18 11/17/24 08:22 Blood Pressure 139/87 11/17/24 08:22 Pulse Oximetry 99 11/17/24 08:22 Oxygen Delivery Method Room Air 11/17/24 08:22 Temperature 98.1 F 11/17/24 08:22 Pulse Rate 90 11/17/24 08:22 Respiratory Rate 18 11/17/24 08:22 Blood Pressure 139/87 11/17/24 08:22 Pulse Oximetry 99 11/17/24 08:22 Oxygen Delivery Method Room Air 11/17/24 08:22 Medical Decision Making MDM Narrative Medical decision making narrative: Given the fact that he has a sore throat and cervical lymphadenopathy with a close encounter of someone who has strep, I will treat him as a strep throat. Patient is allergic to penicillin therefore I will send him with a Zithromax. He was given 1 dose of Decadron here for this throat swelling and pain. Return to ED if worsening symptoms otherwise follow-up with family doctor as needed. Patient is comfortable care plan for home. Differential Diagnosis Differential Diagnosis: Strep throat, viral syndrome, upper respiratory infection Discharge Plan Discharge Chief Complaint: Upper Respiratory Infection Clinical Impression: Acute streptococcal pharyngitis Patient Disposition: Home, Self-Care Time of Disposition Decision: 08:28 Condition: Good Mode of Transportation: Private Vehicle Prescriptions / Home Meds: New azithromycin [Zithromax TRI-ESEQUIEL] 500 mg tablet See Rx Instructions .ROUTE .COMPLEX Qty: 3 0RF Rx Instructions: For 250 mg dose pack: take 500 mg today (day 1), then 250 mg for 4 days (days 2-5) No Action azithromycin [Zithromax Z-Esequiel] 250 mg tablet See Rx Instructions .ROUTE .COMPLEX Qty: 6 0RF Rx Instructions: For 250 mg dose pack: take 500 mg today (day 1), then 250 mg for 4 days (days 2-5) Print Language: Green[place]ic Instructions: Strep Throat (ED) Referrals: Physician,Non-Staff, MD [Primary Care Provider] - 1 week
[2024-11-17] MEDS: DEXAMETHASONE SOD PHOS 10 MG/ML VIAL PO (08:37)
== END 2024-11-17 08:39 | disposition home or self-care (01) ==
PROVIDERS: Emergency Provider Emergency Medicine
DX: J02.0 Streptococcal pharyngitis (principal); F17.200 Nicotine dependence, unspecified, uncomplicated
CPT/HCPCS: 99282; J1100

== ENCOUNTER 2025-03-24 21:14 | Emergency (ER) | payer SELFPAY ==
[2025-03-24 21:26] VITALS: BP 124/70; PULSE 96; TEMP 37.6; O2SAT 97; BMI 30.3
--- NOTE | 2025-03-24 21:40 | ED_ITS ---
HPI - URI/Sore Throat General Chief Complaint: Upper Respiratory Infection Stated Complaint: SORE THROAT Time Seen by Provider: 03/24/25 21:36 Source: patient Limitations: no limitations History of Present Illness HPI Narrative: past history of sore throat. Pain for 2 days. States strep throat in the past. No fever or abdominal pain. Has felt nauseated but has vomited. able to swallow but hurts. no skin rash Related Data Previous Rx's ?Medication ?Instructions ?Recorded azithromycin 250 mg tablet See Rx Instructions PO .COMPLEX #6 10/22/24 (Zithromax Z-Esequiel) tabs azithromycin 500 mg tablet See Rx Instructions PO .COMPLEX #3 11/17/24 (Zithromax TRI-ESEQUIEL) tabs Allergies Allergy/AdvReac Type Severity Reaction Status Date / Time Penicillins Allergy Severe Rash Verified 11/17/24 08:27 Review of Systems ROS Status of ROS 10 or more systems reviewed and unremark able except as noted in history and below PFSH PFS Social History Smoking status: Current every day smoker Little interest or pleasure in doing things: not at all Feeling down, depressed, or hopeless: not at all Exam Constitutional Vital Signs, click to edit/add: Last Vital Signs Temp 99.7 F 03/24/25 21:26 Pulse 96 H 03/24/25 21:26 Resp 16 03/24/25 21:26 BP 124/70 03/24/25 21:26 Pulse Ox 97 03/24/25 21:26 O2 Del Method Room Air 03/24/25 21:26 Common normals: no apparent distress, average body habitus, oriented x3, no limitations, healthy appearing, alert and well nourished [facility] Common normals: normocephalic and head/scalp atraumatic Other: right tonsil enlarged with associated exudate. No swelling of soft palate and uvula is midline. voice is clear Eye Common normals: PERRL and EOMs intact bilaterally Respiratory Common normals: normal respiratory effort, no retractions, no use of accessory muscles and clear to auscultation bilaterally Cardio Common normals: regular rate, S1 normal heart sound and S2 normal heart sound GI Common normals: Normal to inspection, nondistended, normoactive bowel sounds present, soft to palpation and non-tender Extremity Common normals: normal to inspection and full ROM Neuro Common normals: oriented x3, CN's II-XII intact bilaterally, moves all extremities and no focal motor deficits Psych Appearance: grossly normal Course Vital Signs Vital signs: Vital Signs Temperature 99.7 F 03/24/25 21:26 Pulse Rate 96 H 03/24/25 21:26 Respiratory Rate 16 03/24/25 21:26 Blood Pressure 124/70 03/24/25 21:26 Pulse Oximetry 97 03/24/25 21:26 Oxygen Delivery Method Room Air 03/24/25 21:26 Temperature 99.7 F 03/24/25 21:26 Pulse Rate 96 H 03/24/25 21:26 Respiratory Rate 16 03/24/25 21:26 Blood Pressure 124/70 03/24/25 21:26 Pulse Oximetry 97 03/24/25 21:26 Oxygen Delivery Method Room Air 03/24/25 21:26 MDM - URI/Sore Throat MDM Narrative Medical decision making narrative: presents with sore throat for 2 days. Able to swallow but painful. voice is clear. Exam with swelling of the right tonsil with exudate. strep screen neg. CT with findings of pharyngitis with edematous appearance to the parapharyngeal soft tissues R>L. mild uvulitis. No abscess formation. patient treated with clindamycin and decadron. Discharged home with prednisone and clindamycin and advised close follow up Lab Data Labs: Lab Results 03/24/25 03/24/25 Range/Units 21:30 21:53 WBC 15.0 H (4.0-11.0) 10^3/uL RBC 4.71 (4.70-6.10) 10^6/uL Hgb 14.4 (14.0-18.0) g/dL Hct 42.5 (42.0-54.0) % MCV 90.2 (80.0-94.0) fL MCH 30.6 (25.9-34.0) pg MCHC 33.9 (29.9-35.2) g/dL RDW 12.3 (11.0-15.0) % Plt Count 246 (150-450) 10^3/uL MPV 10.1 (9.5-13.5) fL Seg Neuts % (Manual) 74.0 (43.0-75.0) Lymphocytes % (Manual) 14.0 L (20.5-60.0) % Monocytes % (Manual) 11.0 (1.7-12.0) % Eosinophils % (Manual) 1.0 (0.9-7.0) % Basophils % (Manual) 0.0 L (0.2-2.0) % Neutrophils # (Manual) 11.10 H (1.4-6.5) 10^3/uL Lymphocytes # (Manual) 2.10 (1.20-3.80) 10^3/uL Monocytes # (Manual) 1.65 H (0.30-0.80) 10^3/uL Eosinophils # (Manual) 0.15 (0.00-0.70) 10^3/uL Basophils # (Manual) 0.00 (0.00-0.10) 10^3/uL Sodium 142 (136-145) mmol/L Potassium 3.6 (3.5-5.1) mmol/L Chloride 104 (98-107) mmol/L Carbon Dioxide 27.6 (21.0-32.0) mmol/L Anion Gap 14.0 BUN 13.0 (7.0-18.0) mg/dL Creatinine 1.04 (0.70-1.30) mg/dL Est GFR ( Amer) >60 (>=60 mL/min/1.73m^2) Est GFR (Non-Af Amer) >60 (>=60 mL/min/1.73m^2) BUN/Creatinine Ratio 12.5 Glucose 102 (74-106) mg/dL Calcium 9.3 (8.5-10.1) mg/dL Streptococcus Screen Negative Discharge Plan Discharge Chief Complaint: Upper Respiratory Infection Clinical Impression: Exudative tonsillitis Patient Disposition: Home, Self-Care Prescriptions / Home Meds: No Action azithromycin [Zithromax Z-Esequiel] 250 mg tablet See Rx Instructions .ROUTE .COMPLEX Qty: 6 0RF Rx Instructions: For 250 mg dose pack: take 500 mg today (day 1), then 250 mg for 4 days (days 2-5) azithromycin [Zithromax TRI-ESEQUIEL] 500 mg tablet See Rx Instructions .ROUTE .COMPLEX Qty: 3 0RF Rx Instructions: For 250 mg dose pack: take 500 mg today (day 1), then 250 mg for 4 days (days 2-5) Print Language: Tamazight Instructions: Tonsillitis (ED) Additional Instructions: follow up within a couple of days for recheck. Return is any worsening Referrals: Physician,Non-Staff, MD [Primary Care Provider] - 1 week
[2025-03-24 21:43] LABS: Internal Control Within Normal Limits; Strep A Antigen Screen Negative
[2025-03-24 22:00] LABS: Hematocrit 42.5 % (42.0-54.0); Hemoglobin 14.4 g/dL (14.0-18.0); Mean Corpuscular HGB Conc 33.9 g/dL (29.9-35.2); Mean Corpuscular Hemoglobin 30.6 pg (25.9-34.0); Mean Corpuscular Volume 90.2 fL (80.0-94.0); Mean Platelet Volume 10.1 fL (9.5-13.5); Platelet Count 246 10^3/uL (150-450); Red Blood Count 4.71 10^6/uL (4.70-6.10); Red Cell Distribution Width 12.3 % (11.0-15.0)
[2025-03-24 22:09] LABS: BUN Creatinine Ratio 12.5; Calcium 9.3 mg/dL (8.5-10.1); Carbon Dioxide 27.6 mmol/L (21.0-32.0); Chloride 104 mmol/L (98-107); Estimated GFR (African America >60 (>=60 mL/min/1.73m^2); Estimated GFR (Non-African Ame >60 (>=60 mL/min/1.73m^2); Glucose 102 mg/dL (74-106); Potassium 3.6 mmol/L (3.5-5.1); Sodium 142 mmol/L (136-145)
[2025-03-24] MEDS: ONDANSETRON PF 4 MG/2 ML VIAL IV (22:12)
[2025-03-24] MEDS: DEXAMETHASONE SOD PHOS 10 MG/ML VIAL IV (22:12)
[2025-03-24] MEDS: CLINDAMYCIN PHOSPHATE/D5W 900 MG/50 ML PREMIX 100 MG IV (22:13)
[2025-03-24 22:14] LABS: Monocytes Absolute Manual 1.65 10^3/uL (0.30-0.80)
[2025-03-24 22:15] LABS: Eosinophils Absolute Manual 0.15 10^3/uL (0.00-0.70)
[2025-03-24] MEDS: CLINDAMYCIN HCL 150 MG CAPSULE 300 MG PO (23:16)
== END 2025-03-24 23:26 | disposition home or self-care (01) ==
PROVIDERS: Emergency Provider Internal Medicine
DX: J03.90 Acute tonsillitis, unspecified (principal); F17.200 Nicotine dependence, unspecified, uncomplicated
CPT/HCPCS: 36415; 70491; 80048; 85007; 85027; 87070; 87880; 96365; 96375; 99285; J0736; J1100; J2405; Q9967